=== PATIENT | female | born 1940 | race Hispanic/Latino ===

== ENCOUNTER → 2023-12-07 08:42 | Outpatient (REF) | payer MEDICARE, OTHER, SELFPAY ==
[2023-12-07 13:17] LABS: % Basophils 1.2 % (0-2); % Eosinophils 4.5 % (0-6); % Immature Granulocytes 0.2 % (0-0.5); % Lymphocytes 37.5 % (20.5-51.1); % Monocytes 12.3 % (1.7-9.3); % Neutrophils 44.3 % (42.2-75.2); Absolute Basophils 0.1 10^3/uL (0-0.2); Absolute Eosinophils 0.2 10^3/uL (0-0.7); Absolute Lymphocytes 1.9 10^3/uL (1.2-3.4); Absolute Monocytes 0.6 10^3/uL (0.1-0.6); Absolute Neutrophils 2.3 10^3/uL (1.4-6.5); Hematocrit 38.2 % (37.0-47.0); Hemoglobin 13.1 g/dL (12.0-16.0); Mean Corp Hgb Conc. 34.3 g/dL (33.0-37.0); Mean Corpuscular Hgb 31.6 pg (27.0-31.0); Mean Corpuscular Volume 92.3 fL (81.0-99.0); Mean Platelet Volume 9.8 fL (7.4-10.4); Nucleated Red Blood Cells % 0 %; Platelet Count 287 10^3/uL (130-400); Red Blood Cell Count 4.14 10^6/uL (4.20-5.40); Red Cell Dist. Width 13.2 % (11.5-14.5); White Blood Cell Count 5.1 10^3/uL (4.8-10.8)
[2023-12-07 13:30] LABS: ALT (SGPT) 18 U/L (0-35); AST (SGOT) 26 U/L (14-36); Alkaline Phosphatase 96 U/L (38-126); Blood Urea Nitrogen 16 mg/dl (7-17); Calcium 10.1 mg/dl (8.4-10.2); Carbon Dioxide 26 mmol/L (22-30); Chloride 101 mmol/L (98-107); Glucose 118 mg/dl (70-99); HDL Cholesterol 74 mg/dl; LDL Cholesterol, Calculated 99 mg/dl; Potassium 4.4 mmol/L (3.5-5.1); Sodium 136 mmol/L (135-145); Total Bilirubin 0.6 mg/dl (0.2-1.3); Total Cholesterol 194 mg/dl (50-199); Total Protein 6.7 g/dl (6.3-8.2); Triglyceride 107 mg/dl (10-149); Very Low Density Lipoprotein 21 mg/dl (0-30); eGFR > 60.00
[2023-12-07 13:32] LABS: C-Reactive Protein < 5.00 mg/L (0.0-10.00)
[2023-12-07 13:47] LABS: Microalbumin/creatinine Ratio 17.5 mg/g
[2023-12-07 13:49] LABS: Total Thyroxine 9.07 ug/dl (5.5-11.0)
[2023-12-07 14:03] LABS: TSH 1.92 uIU/ml (0.47-4.68)
[2023-12-07 14:24] LABS: Glycohemoglobin (HgbA1c) 6.2 % (4.0-5.6)
[2023-12-09 22:59] LABS: Total T3 (Sendout) 87 ng/dL (80-200)
== END ==
LOC: HWLAB 08:42
PROVIDERS: ATTENDING PHYSICIAN Nurse Practitioner Adult Health
DX: E11.59 Type 2 diabetes mellitus with other circulatory complications (principal); I10 Essential (primary) hypertension; E78.2 Mixed hyperlipidemia; L40.59 Other psoriatic arthropathy; R74.8 Abnormal levels of other serum enzymes; Z00.00 Encounter for general adult medical examination without abnormal findings; R79.0 Abnormal level of blood mineral
CPT/HCPCS: 36415; 80053; 80061; 82043; 82570; 83036; 84436; 84443; 84480; 85025; 86140

== ENCOUNTER → 2024-01-05 08:59 | Outpatient (REF) | payer MEDICARE, OTHER, SELFPAY ==
[2024-01-05 09:52] LABS: Ionized Calcium 1.25 mMOL/L (1.15-1.33)
[2024-01-05 10:02] LABS: % Basophils 1.1 % (0-2); % Eosinophils 3.9 % (0-6); % Immature Granulocytes 0.4 % (0-0.5); % Lymphocytes 40.1 % (20.5-51.1); % Monocytes 10.7 % (1.7-9.3); % Neutrophils 43.8 % (42.2-75.2); Absolute Basophils 0.1 10^3/uL (0-0.2); Absolute Eosinophils 0.2 10^3/uL (0-0.7); Absolute Lymphocytes 2.3 10^3/uL (1.2-3.4); Absolute Monocytes 0.6 10^3/uL (0.1-0.6); Absolute Neutrophils 2.5 10^3/uL (1.4-6.5); Hematocrit 37.7 % (37.0-47.0); Mean Corp Hgb Conc. 34.5 g/dL (33.0-37.0); Mean Corpuscular Hgb 31.4 pg (27.0-31.0); Mean Corpuscular Volume 91.1 fL (81.0-99.0); Mean Platelet Volume 9.4 fL (7.4-10.4); Nucleated Red Blood Cells % 0 %; Platelet Count 282 10^3/uL (130-400); Red Blood Cell Count 4.14 10^6/uL (4.20-5.40); Red Cell Dist. Width 12.8 % (11.5-14.5); White Blood Cell Count 5.7 10^3/uL (4.8-10.8)
[2024-01-05 10:34] LABS: C-Reactive Protein < 5.00 mg/L (0.0-10.00)
[2024-01-05 10:40] LABS: ALT (SGPT) 24 U/L (0-35); AST (SGOT) 27 U/L (14-36); Albumin 4.4 g/dl (3.5-5.0); Alkaline Phosphatase 107 U/L (38-126); Blood Urea Nitrogen 14 mg/dl (7-17); Calcium 10.1 mg/dl (8.4-10.2); Carbon Dioxide 25 mmol/L (22-30); Chloride 102 mmol/L (98-107); Glucose 123 mg/dl (70-99); Potassium 4.3 mmol/L (3.5-5.1); Sodium 138 mmol/L (135-145); Total Bilirubin 0.5 mg/dl (0.2-1.3); Total Protein 7.1 g/dl (6.3-8.2); eGFR > 60.00
== END ==
LOC: HWLAB 08:59
PROVIDERS: ATTENDING PHYSICIAN Internal Medicine Rheumatology; FAMILY PHYSICIAN Nurse Practitioner Adult Health
DX: E55.9 Vitamin D deficiency, unspecified (principal); K76.0 Fatty (change of) liver, not elsewhere classified; R74.8 Abnormal levels of other serum enzymes; Z22.7 Latent tuberculosis; Z68.29 Body mass index [BMI] 29.0-29.9, adult; Z79.899 Other long term (current) drug therapy
CPT/HCPCS: 36415; 80053; 82330; 85025; 86140

== ENCOUNTER → 2024-01-25 09:56 | Outpatient (REF) | payer MEDICARE, OTHER, SELFPAY | LOC: HWWDC 09:56 | PROVIDERS: ATTENDING PHYSICIAN Nurse Practitioner Adult Health | DX: Z12.31 Encounter for screening mammogram for malignant neoplasm of breast (principal) | CPT/HCPCS: 77063; 77067 ==

== ENCOUNTER → 2024-02-06 10:05 | Outpatient (REF) | payer MEDICARE, OTHER, SELFPAY | LOC: MRI 3T 10:05 | PROVIDERS: ATTENDING PHYSICIAN Specialist; FAMILY PHYSICIAN Nurse Practitioner Adult Health | DX: M54.16 Radiculopathy, lumbar region (principal) | CPT/HCPCS: 72148 ==

== ENCOUNTER → 2024-05-16 10:34 | Outpatient (REF) | payer MEDICARE, OTHER, SELFPAY ==
[2024-05-16 15:46] LABS: % Eosinophils 2.5 % (0-6); % Immature Granulocytes 0.4 % (0-0.5); % Lymphocytes 42.7 % (20.5-51.1); % Monocytes 11.3 % (1.7-9.3); % Neutrophils 42.1 % (42.2-75.2); Absolute Basophils 0.1 10^3/uL (0-0.2); Absolute Eosinophils 0.1 10^3/uL (0-0.7); Absolute Lymphocytes 2.2 10^3/uL (1.2-3.4); Absolute Monocytes 0.6 10^3/uL (0.1-0.6); Absolute Neutrophils 2.2 10^3/uL (1.4-6.5); Hematocrit 40.1 % (37.0-47.0); Hemoglobin 13.7 g/dL (12.0-16.0); Mean Corp Hgb Conc. 34.2 g/dL (33.0-37.0); Mean Corpuscular Hgb 31.7 pg (27.0-31.0); Mean Corpuscular Volume 92.8 fL (81.0-99.0); Mean Platelet Volume 9.8 fL (7.4-10.4); Nucleated Red Blood Cells % 0 %; Platelet Count 276 10^3/uL (130-400); Red Blood Cell Count 4.32 10^6/uL (4.20-5.40); Red Cell Dist. Width 12.8 % (11.5-14.5); White Blood Cell Count 5.2 10^3/uL (4.8-10.8)
[2024-05-16 15:54] LABS: ALT (SGPT) 22 U/L (0-35); AST (SGOT) 31 U/L (14-36); Albumin 4.5 g/dl (3.5-5.0); Alkaline Phosphatase 98 U/L (38-126); Blood Urea Nitrogen 16 mg/dl (7-17); Calcium 10.2 mg/dl (8.4-10.2); Carbon Dioxide 26 mmol/L (22-30); Chloride 101 mmol/L (98-107); Glucose 110 mg/dl (70-99); Potassium 4.4 mmol/L (3.5-5.1); Sodium 135 mmol/L (135-145); Total Bilirubin 0.6 mg/dl (0.2-1.3); Total Protein 7.1 g/dl (6.3-8.2); eGFR > 60.00
[2024-05-16 15:56] LABS: C-Reactive Protein < 5.00 mg/L (0.0-10.00)
[2024-05-16 16:13] LABS: Vitamin D, 25-OH*** 40.8 ng/mL (30-80)
== END ==
LOC: HWLAB 10:34
PROVIDERS: ATTENDING PHYSICIAN Internal Medicine Rheumatology; FAMILY PHYSICIAN Family Medicine
DX: E55.9 Vitamin D deficiency, unspecified (principal); E83.52 Hypercalcemia; K76.0 Fatty (change of) liver, not elsewhere classified; L40.50 Arthropathic psoriasis, unspecified; L40.9 Psoriasis, unspecified; M17.11 Unilateral primary osteoarthritis, right knee; M25.561 Pain in right knee; M67.912 Unspecified disorder of synovium and tendon, left shoulder; M85.80 Other specified disorders of bone density and structure, unspecified site; R74.8 Abnormal levels of other serum enzymes; Z22.7 Latent tuberculosis; Z68.30 Body mass index [BMI] 30.0-30.9, adult; Z79.899 Other long term (current) drug therapy
CPT/HCPCS: 36415; 80053; 82306; 85025; 86140

== ENCOUNTER → 2024-06-29 09:10 | Outpatient (REF) | payer MEDICARE, OTHER, SELFPAY | LOC: HWRCS 09:10 | PROVIDERS: ATTENDING PHYSICIAN Internal Medicine Cardiovascular Disease; FAMILY PHYSICIAN Nurse Practitioner Adult Health | DX: Z01.810 Encounter for preprocedural cardiovascular examination (principal); I10 Essential (primary) hypertension | CPT/HCPCS: 93306 ==

== ENCOUNTER 2024-07-17 09:55 | Inpatient (IN) | payer MEDICARE, OTHER, SELFPAY ==
[2024-06-22 13:45] VITALS: BMI 31.8
[2024-06-22 14:02] LABS: Hematocrit 39.4 % (37.0-47.0); Hemoglobin 13.4 g/dL (12.0-16.0); Mean Corpuscular Hgb 31.5 pg (27.0-31.0); Mean Corpuscular Volume 92.7 fL (81.0-99.0); Mean Platelet Volume 9.7 fL (7.4-10.4); Platelet Count 274 10^3/uL (130-400); Red Blood Cell Count 4.25 10^6/uL (4.20-5.40); Red Cell Dist. Width 12.8 % (11.5-14.5); White Blood Cell Count 6.1 10^3/uL (4.8-10.8)
[2024-06-22 15:10] LABS: ALT (SGPT) 23 U/L (0-35); AST (SGOT) 30 U/L (14-36); Albumin 4.7 g/dl (3.5-5.0); Alkaline Phosphatase 98 U/L (38-126); Blood Urea Nitrogen 16 mg/dl (7-17); Calcium 10.3 mg/dl (8.4-10.2); Carbon Dioxide 25 mmol/L (22-30); Chloride 99 mmol/L (98-107); Estimated Creatinine Clearance 60 ml/min; Glucose 112 mg/dl (70-99); Potassium 4.5 mmol/L (3.5-5.1); Sodium 137 mmol/L (135-145); Total Bilirubin 0.3 mg/dl (0.2-1.3); Total Protein 7.3 g/dl (6.3-8.2); eGFR > 60.00
[2024-06-23 10:09] LABS: Glycohemoglobin (HgbA1c) 5.9 % (4.0-5.6)
--- NOTE | 2024-07-04 10:04 | VNURNOTE ---
Patient is scheduled for an elective left TKA on 07/17/24. She will be an overnight admission.
Spoke to patient on phone. She reports she lives in a single story home. Has 4 step to enter home. She has a walker. Patient's daughter Valerie is emergency contact and will be driving patient home on the day of discharge.
Patient states she believes the plan will be to have outpatient therapy when she is ready. Home health liaison reviewed she will have VN services the day after she gets home. Explained role of SN and PT in home.
Patient selects [facility] for patient�s homecare needs. Referral completed in [facility]
PCP is TOMA Chappell. RX: is Dc
[2024-07-12 11:13] VITALS: BMI 31.8
[2024-07-17] VITALS (10 sets, daily range): BP systolic 111–169; BP diastolic 56–82; PULSE 86; O2SAT 97; BMI 31.8
[2024-07-17 09:53] LABS: Glucose - Point of Care 176 mg/dl (70-99)
[2024-07-17] MEDS: TYLENOL 650 MG PO ×4 (10:17→23:51)
[2024-07-17] MEDS: NORMOSOL-R/PLASMALYTE-A 1000 IV ×2 (10:17→14:26)
[2024-07-17] MEDS: CELEBREX 200 MG PO (10:17)
[2024-07-17 12:01] LABS: Glucose - Point of Care 123 mg/dl (70-99)
--- NOTE | 2024-07-17 12:25 | W.DS.TRANS ---
DC Summary - Behavioral Psychologist
-
Discharge Instructions:
Sleep Apnea Risk Low
Discharge Diagnosis/Procedures R TKA Dr. Lopez 07/17/24
Diet Diabetic, Carb Controlled
Activity With Walker
Driving Restrictions No driving
Bathing Restrictions OK to Shower
Instructions:
Stand-Alone Forms: Total Hip/Knee Replacement D/C
Changes to Home Medications: Yes
Discharge Medications:
DC Medications w/original date entered in [employer]
cholecalciferol (vitamin D3) 50 mcg (2,000 unit) capsule (Vitamin D3) 50 mcg PO DAILY Supplement 12/23/22
multivitamin (Daily Multi-Vitamin tablet) 1 tab PO DAILY Supplement 12/23/22
simethicone 180 mg capsule (Phazyme) 180 mg PO DAILYPRN PRN upset stomach/bloating 12/30/22
amlodipine 10 mg tablet 10 mg PO DAILY 07/12/24
atorvastatin 10 mg tablet (Lipitor) 10 mg PO HS 07/12/24
dexamethasone 4 mg tablet 4 mg PO BID post op 07/12/24
metformin 500 mg tablet,extended release 24 hr 500 mg PO DAILY 07/12/24
mupirocin 2 % topical ointment 1 applic topical BID 07/12/24
omeprazole 20 mg capsule,delayed release 40 mg PO PRN PRN GERD 07/12/24
ondansetron HCl 4 mg tablet 4 mg PO Q6H PRN post op nausea 07/12/24
oxycodone 5 mg tablet 5 - 10 mg PO Q6H PRN post op pain 07/12/24
sulfasalazine 500 mg tablet (Azulfidine) 1,500 mg PO BID 07/12/24
acetaminophen 500 mg tablet (Acetaminophen Extra Strength) 1,000 mg (2 x 500 mg) PO QID #60 tabs 07/17/24
aspirin 325 mg tablet 325 mg PO DAILY Blood clot prevention/tx #0 tabs 07/17/24
celecoxib 100 mg capsule 100 mg PO BID #0 caps 07/17/24
docusate sodium 100 mg capsule (Colace) 100 mg PO BID stool softner #1 cap 07/17/24
lisinopril 40 mg tablet 40 mg PO DAILY #0 tabs 07/17/24
magnesium hydroxide 400 mg/5 mL oral suspension (Milk of Magnesia) 30 ml PO HS PRN Constipation #1 mL 07/17/24
sennosides 8.6 mg tablet (Senokot) 17.2 mg (2 x 8.6 mg) PO BID laxative #2 tabs 07/17/24
Home Medication Changes
ondansetron HCl 4 mg tablet 4 mg PO Q6H PRN post op nausea 07/12/24�
oxycodone 5 mg tablet 5 - 10 mg PO Q6H PRN post op pain 07/12/24�
aspirin 325 mg tablet 325 mg PO DAILY Blood clot prevention/tx #0 tabs 07/17/24�
celecoxib 100 mg capsule 100 mg PO BID #0 caps 07/17/24�
dexamethasone 4 mg tablet 4 mg PO BID post op 07/12/24�
Pending Results: No
[2024-07-17 14:01] LABS: Glucose - Point of Care 114 mg/dl (70-99)
[2024-07-17] MEDS: ROXICODONE 5 MG PO (14:25)
--- NOTE | 2024-07-17 14:50 | PTCARENOTE ---
Patient admitted from [facility] right total knee replacement.The patient reports her pain at a 4 out of 10.Neurovascular assessment is within normal limits and ongoing.Vital signs are stable.The Primaseal dressing has scant drainage .The patient is
in her bed with the call dugan in reach.Physical therapy was on their way in to see the patient.
[2024-07-17] MEDS: GLUCOPHAGE XR EXTENDED RELEASE 500 MG PO (16:38)
[2024-07-17] MEDS: LANTUS 0.04 UNITS SC (16:39)
[2024-07-17] MEDS: NOVOLOG FLEXPEN-MODERATE RESISTANCE SC (16:39)
[2024-07-17] MEDS: ROXICODONE 10 MG PO (17:51)
[2024-07-17] MEDS: ASPIRIN 325 MG PO (17:51)
[2024-07-17] MEDS: AZULFIDINE 1500 MG PO (19:57)
[2024-07-17] MEDS: ANCEF 5 IV (19:57)
[2024-07-17] MEDS: SENOKOT 17.2 MG PO (19:58)
[2024-07-17] MEDS: BACTROBAN 2% OINTMENT 1 APPLIC NASAL (19:58)
[2024-07-17] MEDS: COLACE 100 MG PO (19:58)
[2024-07-17] MEDS: TORADOL 15 MG IV (19:58)
[2024-07-17] MEDS: DECADRON 4 MG PO (19:58)
[2024-07-17 21:52] LABS: Glucose - Point of Care 156 mg/dl (70-99)
[2024-07-17] MEDS: PROTONIX 40 MG PO (22:19)
[2024-07-17] MEDS: NEURONTIN 300 MG PO (22:19)
[2024-07-18] MEDS: ANCEF 5 IV (03:05)
[2024-07-18] MEDS: TYLENOL 650 MG PO ×3 (03:07→11:44)
[2024-07-18 03:38] VITALS: BP 126/57
[2024-07-18 07:20] LABS: Glucose - Point of Care 140 mg/dl (70-99)
[2024-07-18] MEDS: NOVOLOG FLEXPEN-MODERATE RESISTANCE SC (07:26)
[2024-07-18] MEDS: ROXICODONE 10 MG PO (07:55)
[2024-07-18] MEDS: GLUCOPHAGE XR EXTENDED RELEASE 500 MG PO (07:56)
[2024-07-18] MEDS: CELEBREX 200 MG PO (07:56)
[2024-07-18] MEDS: ASPIRIN 325 MG PO (07:56)
[2024-07-18] MEDS: LANTUS 0.04 UNITS SC (07:56)
[2024-07-18] MEDS: COLACE 100 MG PO (07:56)
[2024-07-18] MEDS: DECADRON 4 MG PO (07:56)
[2024-07-18] MEDS: SENOKOT 17.2 MG PO (07:56)
[2024-07-18] MEDS: BACTROBAN 2% OINTMENT 1 APPLIC NASAL (07:57)
[2024-07-18] MEDS: TORADOL 15 MG IV (07:57)
[2024-07-18] MEDS: AZULFIDINE 1500 MG PO (07:57)
[2024-07-18 11:05] VITALS: BP 131/56
--- NOTE | 2024-07-18 11:48 | W.PN.ORTHO ---
Today's Communication / Plan
-
d/c
Assessment
.
Distal Motor Intact: Yes
Dressing:
Clean, dry and intact.
Plan
.
Surgery / Date: Fanny Lopez 07/17/24
DVT Prophylaxis: Aspirin
Activity:
Out of bed.
PT/OT
Discharge Plan: Home w/ Outpatient PT
Subjective
.
.:
Patient resting comfortably.
Vital Signs and Labs
.
Vital Signs and Labs:
Lab Results
06/22/24 13:37
06/22/24 13:37
Temp Pulse Resp BP Pulse Ox
97.4 F 77 17 131/56 97
07/18/24 11:05 07/18/24 11:05 07/18/24 11:05 07/18/24 11:05 07/18/24 11:05
Non-invasive Hgb result: 11.5
Physical Exam
-
HEENT: No pallor, cyanosis, or jaundice. Throat clear.
NECK: Supple. No JVD.
RESPIRATORY: Lungs clear to auscultation.
CVS: S1, S2 normal. RRR.� No murmur, rub or gallop.
ABDOMEN: Soft, non-tender. No distension. BS+/normal.
EXTREMITIES: strength equal, no calf pain with palpation
TECHNICAL PROFESSIONAL: AOx3. No focal deficits. news broadcaster grossly intact
[2024-07-18 11:49] LABS: Glucose - Point of Care 157 mg/dl (70-99)
[2024-07-18 12:01] VITALS: BP 140/85
[2024-07-18] MEDS: NOVOLOG FLEXPEN-MODERATE RESISTANCE 1 UNITS SC (12:27)
[2024-07-18 12:33] VITALS: BP 129/69; PULSE 86
--- NOTE | 2024-07-18 12:45 | CM ---
CM met with tp and dtr
They reside in an apartment- 2+5+1 steps to enter
Pt ambulates with a WW
She has SPC, shower chair, commode, and WW
Dtr assists with her personal care needs
Pt notes financial insecurities for food- she has SNAP benefit
Declined [employer] resources and food pantry lists
PCP- Yin Starkey
Rx- Dc
Plan for home with outpatient therapy
Visit scheduled for Thrs 07/20 at 1000 at [facility]
IMM verbally reviewed- copy provided
Discharge Disposition- home with outpatient therapy- dtr transport
--- NOTE | 2024-07-18 13:00 | PTCARENOTE ---
April dressing on patients R knee changed per [place] [facility] verbal order.
--- NOTE | 2024-07-18 14:25 | PTCARENOTE ---
Escorted patient to daughters car for discharge. R knee aqaucell clean dry and intact.
== END 2024-07-18 14:25 | disposition home or self-care (01) | DRG 470 ==
LOC: 2 SOUTH 09:55
PROVIDERS: ADMITTING PHYSICIAN Specialist; FAMILY PHYSICIAN Nurse Practitioner Adult Health; REFERRING PHYSICIAN Internal Medicine Cardiovascular Disease
PROC: 0SRC0J9 Replacement of Right Knee Joint with Synthetic Substitute, Cemented, Open Approach (ICD-10-PCS; 2024-07-17)
DX: M17.11 Unilateral primary osteoarthritis, right knee (principal); K76.0 Fatty (change of) liver, not elsewhere classified; I10 Essential (primary) hypertension; E11.9 Type 2 diabetes mellitus without complications; E04.1 Nontoxic single thyroid nodule; E66.9 Obesity, unspecified; Z68.30 Body mass index [BMI] 30.0-30.9, adult; E78.5 Hyperlipidemia, unspecified; K21.9 Gastro-esophageal reflux disease without esophagitis; H40.9 Unspecified glaucoma; K58.9 Irritable bowel syndrome, unspecified; M50.30 Other cervical disc degeneration, unspecified cervical region; M85.80 Other specified disorders of bone density and structure, unspecified site; Z96.642 Presence of left artificial hip joint; Z79.82 Long term (current) use of aspirin; Z79.84 Long term (current) use of oral hypoglycemic drugs; Z79.899 Other long term (current) drug therapy; Z87.19 Personal history of other diseases of the digestive system; Z86.19 Personal history of other infectious and parasitic diseases; Z88.5 Allergy status to narcotic agent; Z88.8 Allergy status to other drugs, medicaments and biological substances
CPT/HCPCS: 36415; 73560; 80053; 82962; 83036; 85027; 87070; 97110; 97116; 97162; 97166; 97530; 97535; C1713; C1776

== ENCOUNTER 2024-07-18 18:03 | Emergency (ER) | payer MEDICARE, OTHER, SELFPAY ==
[2024-07-18 18:10] VITALS: BP 179/82
[2024-07-18 18:45] VITALS: BMI 32.1
[2024-07-18 19:33] VITALS: BP 147/62
--- NOTE | 2024-07-18 20:04 | ED.GENMED ---
History of Present Illness
General
Chief Complaint: Post Operative Problem(s)
Time Seen by Provider: 07/18/24 19:39
History of Present Illness
History of Present Illness:
84-year-old female presenting after a total knee replacement. Knee replacement surgery was on 07/17. Procedure performed by Dr. Tomlin. Patient returns to the emergency department because she noted some bleeding at one of her staple sites. Per
orthopedics, no complications from the surgery. Patient has been weightbearing. Denies fever, numbness or tingling to extremity, or additional acute medical complaints.
Past History
Past History
ED Past Medical History: GERD, HTN, Hypercholesterolemia, NIDDM and Other
ED Past Surgical History: Appendectomy, Cholecystectomy, Gynecological (Hysterectomy) and Other
Social History
Tobacco: Former smoker
Alcohol: None
Drug: None
Personal:
Living: alone
Employment: Retired
Family History
Family History: Other (Noncontributory)
Phy Exam
Physical Exam
Physical Exam:
General: Well-appearing, no clinical signs of dehydration, nontoxic and in no acute distress
HEENT: protecting airway
Neck: appears supple
CV: Normal heart rate
Resp: No accessory muscle use, no increased work of breathing
Abd: No distention
Extremities: Generalized swelling to the knee, wrapped with Rob bandages for hemostasis. No erythema or warmth distal to the knee. Sensation and pulses intact
Neuro: alert, no focal neurologic deficit
: deferred
Rectal: deferred
Psych: Normal affect
Skin: Intact
Course
Orders/Labs/Results
Orders:
Orders
07/18/24 19:54
Tranexamic Acid [Cyklokapron] 1,300 mg PO ONCE ONE
Vital Signs
Initial and Last Documented VS:
Initial Vital Signs
Temp Pulse Resp BP Pulse Ox
98.9 F 103 17 179/82 99
07/18/24 18:10 07/18/24 18:10 07/18/24 18:10 07/18/24 18:10 07/18/24 18:10
Last Documented Vital Signs
Temp Pulse Resp BP Pulse Ox
98.9 F 94 18 147/62 97
07/18/24 18:10 07/18/24 19:33 07/18/24 19:33 07/18/24 19:33 07/18/24 19:33
MDM/Problems Addressed
MDM/Problems Addressed:
84-year-old female with history of osteoarthritis status post total knee replacement on 07/17 by orthopedics presenting for concern of bleeding from surgical site. Vital signs on arrival significant for mild hypertension which resolved without
intervention.
On exam, patient well-appearing, no acute distress or discomfort. Orthopedics at bedside on my assessment, appropriately changed bandage and wrapped the knee, tight bandage for hemostasis. Orthopedist, Dr. Tomlin without present concern for
infection. No present neurovascular compromise. Patient has been bearing weight. He is recommending an oral dose of TXA, will administer. From orthopedic standpoint, feel patient is stable for discharge with continued outpatient follow-up.
Advised continued pain control at home with medications provided by orthopedics. Return precautions discussed patient verbalized understanding
*Critical Care Note
Total Time (30-74mins, 75-104mins- exclusive of procedures): Not Applicable
ED Attending Note
-
Portions of this chart may have been created with voice recognition software.� Occasional wrong word or��sound alike� substitutions may have occurred due to the inherent limitations of voice recognition software.
Discharge Plan
Departure
Prescriptions:
No Action
multivitamin [Daily Multi-Vitamin] Tablet
1 tab PO DAILY
cholecalciferol (vitamin D3) [Vitamin D3] 50 mcg (2,000 unit) Capsule
50 mcg PO DAILY
simethicone [Phazyme] 180 mg Capsule
180 mg PO DAILYPRN PRN (Reason: upset stomach/bloating)
sulfasalazine [Azulfidine] 500 mg Tablet
1,500 mg PO BID
atorvastatin [Lipitor] 10 mg Tablet
10 mg PO HS
amlodipine 10 mg Tablet
10 mg PO DAILY
metformin 500 mg Tablet Extended Release 24 Hr
500 mg PO DAILY
omeprazole 20 MG capsule,delayed release(DR/EC)
40 mg PO PRN PRN (Reason: GERD)
mupirocin 2 % Ointment
1 applic TOPICAL BID
Rx Instructions:
started treatment wednesday07/14/24 and completed BID
ondansetron HCl 4 mg Tablet
4 mg PO Q6H PRN (Reason: post op nausea)
Patient Comments:
*
Rx Instructions:
x30 days
dexamethasone 4 mg Tablet
4 mg PO BID
Patient Comments:
*
Rx Instructions:
x3 days
oxycodone 5 mg Tablet
5 - 10 mg PO Q6H PRN (Reason: post op pain)
Patient Comments:
*
sennosides [Senokot] 8.6 mg tablet
17.2 mg PO BID Qty: 2 0RF
magnesium hydroxide [Milk of Magnesia] 400 mg/5 mL suspension
30 ml PO HS PRN (Reason: Constipation) Qty: 1 0RF
docusate sodium [Colace] 100 mg capsule
100 mg PO BID Qty: 1 0RF
aspirin 325 mg Tablet
325 mg PO DAILY Qty: 0 0RF
Patient Comments:
*
Rx Instructions:
x30 days
acetaminophen [Acetaminophen Extra Strength] 500 mg tablet
1,000 mg PO QID Qty: 60 0RF
Rx Instructions:
DO NOT exceed >4000 mg daily.
celecoxib 100 mg Capsule
100 mg PO BID Qty: 0 0RF
Patient Comments:
*
Rx Instructions:
x 30 days
lisinopril 40 mg tablet
40 mg PO DAILY Qty: 0 0RF
Rx Instructions:
HOLD if systolic blood pressure <130 while on Oxycodone.
Referrals:
Yin Storey CRNP [Family Provider] -
Interventions
Interventions:
*Risk Screen - Suicide Last Done: 07/18/24 18:45
*General Assessment Last Done: 07/18/24 18:45
*Neglect/Abuse Screening Last Done: 07/18/24 18:45
ED-Skin Assessment Last Done: 07/18/24 18:45
Discharge Date and Time
Print Language: OCCITAN
[2024-07-18] MEDS: CYKLOKAPRON 1300 MG PO (20:17)
== END 2024-07-18 20:31 | disposition home or self-care (01) ==
LOC: EMR 18:03
PROVIDERS: EMERGENCY PHYSICIAN Student in an Organized Health Care Education/Training Program; FAMILY PHYSICIAN Nurse Practitioner Adult Health
DX: M96.830 Postprocedural hemorrhage of a musculoskeletal structure following a musculoskeletal system procedure (principal); Y83.8 Other surgical procedures as the cause of abnormal reaction of the patient, or of later complication, without mention of misadventure at the time of the procedure; I10 Essential (primary) hypertension; K21.9 Gastro-esophageal reflux disease without esophagitis; E78.00 Pure hypercholesterolemia, unspecified; E11.9 Type 2 diabetes mellitus without complications; Z87.891 Personal history of nicotine dependence; Z96.659 Presence of unspecified artificial knee joint
CPT/HCPCS: 99283

== ENCOUNTER 2024-09-20 15:10 | Emergency (ER) | payer MEDICARE, OTHER, SELFPAY ==
[2024-09-20 15:13] VITALS: BP 173/74
--- NOTE | 2024-09-20 16:41 | ED.MUSCINJ ---
HPI-Injury
General
Chief Complaint: Fall
Source: patient
Exam Limitations: none
Time Seen by Provider: 09/20/24 16:29
Nursing documentation reviewed up to this point in time: agreed with
History of Present Illness-Injury
Is this injury a work related problem?: No
Is pt an associate of [facility]/[place]?: No
Initial Injury comments:
Patient states she slipped and fell getting out of bathtub. Hit back of head on floor. NO LOC. COmplains of pain to right hip and knee, low back. Brought to ED by family for eval.
Past History
Past History
ED Past Medical History: GERD, HTN, Hypercholesterolemia, NIDDM and Other
ED Past Surgical History: Appendectomy, Cholecystectomy, Gynecological (Hysterectomy) and Other
Social History
Tobacco: Former smoker
Alcohol: None
Drug: None
Personal:
Living: alone
Employment: Retired
Family History
Family History: Other (Noncontributory)
Review of Systems
Review of Systems
Allergies reviewed?: Yes
All Other Systems: ROS reviewed and negative except as documented in HPI and ROS
Constitutional: Reports no symptoms
EENT: Reports no symptoms
Respiratory: Reports no symptoms
Cardiac: Reports no symptoms
ABD/GI: Reports no symptoms
Musculoskeletal: Reports joint pain (pain to low back right hip and knee)
Skin: Reports no symptoms
Neurological: Reports headache
Psychiatric: Reports no symptoms
Musculoskeletal Injury Exam
Musculoskeletal Injury Exam
bilateral lower back.:
Pain with Movement?: Moderate
Tender to palpation?: Moderate
Soft tissue swelling?: None
External deformity and angulation?: None
Joint effusion?: None
Contusion?: Moderate
Hematoma-local bleeding into tissue?: None
Strain- Sprain- Tear (Connective tissue injury)?: Moderate
Crepitus with movement?: No
Joint instability?: No
Malalignment/deformity?: No
Range of motion: Limited
Distal skin color and temperature: normal-warm & good color
Capillary Refill: normal
Normal distal neurovascular exam?: Yes
Right Lateral Hip:
Pain with Movement?: Moderate
Tender to palpation?: Moderate
Soft tissue swelling?: None
External deformity and angulation?: None
Joint effusion?: None
Contusion?: Moderate
Hematoma-local bleeding into tissue?: None
Strain- Sprain- Tear (Connective tissue injury)?: None
Crepitus with movement?: No
Joint instability?: No
Malalignment/deformity?: No
Range of motion: Limited
Distal skin color and temperature: normal-warm & good color
Capillary Refill: normal
Normal distal neurovascular exam?: Yes
Right Knee:
Pain with Movement?: Moderate
Tender to palpation?: Moderate
Soft tissue swelling?: None
External deformity and angulation?: None
Joint effusion?: None
Contusion?: Moderate
Hematoma-local bleeding into tissue?: None
Strain- Sprain- Tear (Connective tissue injury)?: Mild
Crepitus with movement?: No
Malalignment/deformity?: No
Range of motion: Full
Distal skin color and temperature: normal-warm & good color
Capillary Refill: normal
Normal distal neurovascular exam?: Yes
Phy Exam
General Physical Exam
General Presentation: well appearing and no apparent distress
General age: appears stated age
General Skin: warm and dry
General Habitus: normal
General Mental: alert
General Hydration: appears well hydrated
Neurological Exam
Neurological Exam: alert, oriented x3, CN II-XII intact, no motor deficits, no sensory deficits and speech normal
Justin Coma Scale
Eye Opening: Spontaneous
Verbal Response: Oriented
Motor Response: Obeys Commands
GCS Total Score: 15
Musculoskeletal Exam
Musculoskeletal Exam: full ROM and neuro vasc intact
Skin Exam
Skin Exam: normal color, warm/dry and no rash
Psychiatric Exam
Psychiatric Exam: normal mood/affect
Injury Course
Orders/Labs/Results
Orders:
Orders
09/20/24 16:38
CT Head W/o Iv Contrast Urgent
Comment:
Reason For Exam: fall
Cervical Spine wo Contrast CT [CT Cervical Spine W/o Iv Contr] Urgent
Comment:
Reason For Exam: trauma
09/20/24 16:39
Hip, Right 2-3 Views [CR Hip - RT w/wo Pel 2-3 Vw*] Urgent
Comment:
Reason For Exam: fall
Include a pelvis x-ray?: Yes
Knee, Right 4 or More Views [CR Knee- Right 4 Or More View*] Urgent
Comment:
Reason For Exam: fall
09/20/24 16:43
Lumbar Spine Complete, 4 View [CR Lumbar Spine Comp Min 4 Vw*] Urgent
Comment:
Reason For Exam: fall, pain
09/20/24 18:54
Acetaminophen [Tylenol] 650 mg PO NOW STA
*Radiology
Radiology exam reviewed: radiology read reviewed
*Pulse Oximetry
Patient hypoxic: no
*Critical Care Note
Total Time (30-74mins, 75-104mins- exclusive of procedures): Not Applicable
ED Attending Note
-
Portions of this chart may have been created with voice recognition software.� Occasional wrong word or��sound alike� substitutions may have occurred due to the inherent limitations of voice recognition software.
Discharge Plan
Departure
Patient Disposition: Home (Routine Discharge)
Date of Disposition: 09/20/24
Time of Disposition: 18:55
Patient with high blood pressure during this ER visit?: No
Condition: Good
Covid-19: Not Applicable
Discharge Problem:
Head injury, Lumbar strain, Contusion of knee, Contusion of hip
Instructions: Low back pain in adults, Head Injury in Adults (DC), Contusion (DC), Preventing falls in adults
Prescriptions:
No Action
multivitamin [Daily Multi-Vitamin] Tablet
1 tab PO DAILY
cholecalciferol (vitamin D3) [Vitamin D3] 50 mcg (2,000 unit) Capsule
50 mcg PO DAILY
simethicone [Phazyme] 180 mg Capsule
180 mg PO DAILYPRN PRN (Reason: upset stomach/bloating)
sulfasalazine [Azulfidine] 500 mg Tablet
1,500 mg PO BID
atorvastatin [Lipitor] 10 mg Tablet
10 mg PO HS
amlodipine 10 mg Tablet
10 mg PO DAILY
metformin 500 mg Tablet Extended Release 24 Hr
500 mg PO DAILY
omeprazole 20 MG capsule,delayed release(DR/EC)
40 mg PO PRN PRN (Reason: GERD)
mupirocin 2 % Ointment
1 applic TOPICAL BID
Rx Instructions:
started treatment wednesday07/14/24 and completed BID
ondansetron HCl 4 mg Tablet
4 mg PO Q6H PRN (Reason: post op nausea)
Patient Comments:
*
Rx Instructions:
x30 days
dexamethasone 4 mg Tablet
4 mg PO BID
Patient Comments:
*
Rx Instructions:
x3 days
oxycodone 5 mg Tablet
5 - 10 mg PO Q6H PRN (Reason: post op pain)
Patient Comments:
*
sennosides [Senokot] 8.6 mg tablet
17.2 mg PO BID Qty: 2 0RF
magnesium hydroxide [Milk of Magnesia] 400 mg/5 mL suspension
30 ml PO HS PRN (Reason: Constipation) Qty: 1 0RF
docusate sodium [Colace] 100 mg capsule
100 mg PO BID Qty: 1 0RF
aspirin 325 mg Tablet
325 mg PO DAILY Qty: 0 0RF
Patient Comments:
*
Rx Instructions:
x30 days
acetaminophen [Acetaminophen Extra Strength] 500 mg tablet
1,000 mg PO QID Qty: 60 0RF
Rx Instructions:
DO NOT exceed >4000 mg daily.
celecoxib 100 mg Capsule
100 mg PO BID Qty: 0 0RF
Patient Comments:
*
Rx Instructions:
x 30 days
lisinopril 40 mg tablet
40 mg PO DAILY Qty: 0 0RF
Rx Instructions:
HOLD if systolic blood pressure <130 while on Oxycodone.
Referrals:
Yin Storey CRNP [Family Provider] - Follow up in 2-3 days
Interventions
Interventions:
*Risk Screen - Suicide Last Done: 09/20/24 15:13
*General Assessment Last Done: 09/20/24 15:13
*Neglect/Abuse Screening Last Done: 09/20/24 16:52
*ED COVID-19 Vaccine History Last Done: 09/20/24 15:13
ED-Musculoskeletal Assessment Last Done: 09/20/24 16:53
ED- Neurological Assessment Last Done: 09/20/24 16:53
ED-Skin Assessment Last Done: 09/20/24 16:53
Discharge Date and Time
Print Language: FAROESE
[2024-09-20 16:51] VITALS: BMI 29.8
[2024-09-20 17:02] VITALS: BP 154/64
[2024-09-20 18:29] VITALS: BP 146/61
[2024-09-20] MEDS: TYLENOL 650 MG PO (19:00)
[2024-09-20 19:13] VITALS: BP 169/64
== END 2024-09-20 19:17 | disposition home or self-care (01) ==
LOC: EMR 15:10
PROVIDERS: EMERGENCY PHYSICIAN Emergency Medicine; FAMILY PHYSICIAN Nurse Practitioner Adult Health
DX: S09.90XA Unspecified injury of head, initial encounter (principal); S39.012A Strain of muscle, fascia and tendon of lower back, initial encounter; S80.01XA Contusion of right knee, initial encounter; S70.01XA Contusion of right hip, initial encounter; W18.2XXA Fall in (into) shower or empty bathtub, initial encounter; E11.9 Type 2 diabetes mellitus without complications; E78.00 Pure hypercholesterolemia, unspecified; I10 Essential (primary) hypertension; K21.9 Gastro-esophageal reflux disease without esophagitis; Z87.891 Personal history of nicotine dependence
CPT/HCPCS: 99284; 70450; 72110; 72125; 73502; 73564

== ENCOUNTER → 2025-03-01 09:56 | Outpatient (REF) | payer MEDICARE, OTHER, SELFPAY | LOC: HWRAD 09:56 | PROVIDERS: ATTENDING PHYSICIAN Internal Medicine Rheumatology; FAMILY PHYSICIAN Family Medicine | DX: M81.0 Age-related osteoporosis without current pathological fracture (principal); Z13.820 Encounter for screening for osteoporosis | CPT/HCPCS: 77080 ==

== ENCOUNTER → 2025-03-06 10:20 | Outpatient (REF) | payer MEDICARE, OTHER, SELFPAY | LOC: HWWDC 10:20 | PROVIDERS: ATTENDING PHYSICIAN Nurse Practitioner Adult Health | DX: Z12.31 Encounter for screening mammogram for malignant neoplasm of breast (principal) | CPT/HCPCS: 77063; 77067 ==

== ENCOUNTER → 2025-06-01 09:38 | Outpatient (REF) | payer MEDICARE, OTHER, SELFPAY ==
[2025-06-01 12:31] LABS: Hematocrit 38.2 % (37.0-47.0); Hemoglobin 12.8 g/dL (12.0-16.0); Mean Corp Hgb Conc. 33.5 g/dL (33.0-37.0); Mean Corpuscular Volume 91.0 fL (81.0-99.0); Nucleated Red Blood Cells % 0 %; Platelet Count 247 10^3/uL (130-400); Red Cell Dist. Width 13.4 % (11.5-14.5)
[2025-06-01 13:20] LABS: Vitamin D, 25-OH*** 40.5 ng/mL (30-80)
[2025-06-01 13:34] LABS: ALT (SGPT) 21 U/L (0-35); AST (SGOT) 26 U/L (14-36); Albumin 4.5 g/dl (3.5-5.0); Alkaline Phosphatase 96 U/L (38-126); Blood Urea Nitrogen 14 mg/dl (7-17); Calcium 10.2 mg/dl (8.4-10.2); Carbon Dioxide 25 mmol/L (22-30); Chloride 103 mmol/L (98-107); Glucose 112 mg/dl (70-99); Glycohemoglobin (HgbA1c) 5.8 % (4.0-5.6); HDL Cholesterol 73 mg/dl; LDL Cholesterol, Calculated 125 mg/dl; Potassium 4.5 mmol/L (3.5-5.1); Sodium 134 mmol/L (135-145); Total Protein 7.6 g/dl (6.3-8.2); Very Low Density Lipoprotein 35 mg/dl (0-30); eGFR > 60.00
[2025-06-01 14:28] LABS: Microalb - Urine Creatinine 81.200 mg/dl
[2025-06-01 14:32] LABS: Microalbumin, Random Urine 1.7 mg/dl (0.6-1.7)
== END ==
LOC: HWLAB 09:38
PROVIDERS: ATTENDING PHYSICIAN Family Medicine; FAMILY PHYSICIAN Nurse Practitioner Adult Health
DX: E11.59 Type 2 diabetes mellitus with other circulatory complications (principal); I10 Essential (primary) hypertension; E78.2 Mixed hyperlipidemia; R74.8 Abnormal levels of other serum enzymes; E55.9 Vitamin D deficiency, unspecified
CPT/HCPCS: 36415; 80053; 80061; 82043; 82306; 82570; 83036; 84443; 85025

== ENCOUNTER → 2025-08-16 08:46 | Outpatient (REF) | payer MEDICARE, OTHER, SELFPAY ==
[2025-08-16 11:27] LABS: Hematocrit 38.7 % (37.0-47.0); Hemoglobin 13.0 g/dL (12.0-16.0); Mean Corp Hgb Conc. 33.6 g/dL (33.0-37.0); Mean Corpuscular Volume 92.8 fL (81.0-99.0); Nucleated Red Blood Cells % 0 %; Platelet Count 268 10^3/uL (130-400); Red Cell Dist. Width 13.2 % (11.5-14.5)
[2025-08-16 11:43] LABS: ALT (SGPT) 19 U/L (0-35); AST (SGOT) 24 U/L (14-36); Albumin 4.4 g/dl (3.5-5.0); Alkaline Phosphatase 95 U/L (38-126); Blood Urea Nitrogen 15 mg/dl (7-17); Calcium 10.0 mg/dl (8.4-10.2); Carbon Dioxide 27 mmol/L (22-30); Chloride 105 mmol/L (98-107); Glucose 111 mg/dl (70-99); Potassium 4.4 mmol/L (3.5-5.1); Sodium 136 mmol/L (135-145); Total Protein 7.4 g/dl (6.3-8.2); eGFR > 60.00
[2025-08-16 11:47] LABS: C-Reactive Protein < 5.00 mg/L (0.0-10.00)
[2025-08-16 12:03] LABS: Vitamin D, 25-OH*** 45.8 ng/mL (30-80)
== END ==
LOC: HWLAB 08:46
PROVIDERS: ATTENDING PHYSICIAN Internal Medicine Rheumatology; FAMILY PHYSICIAN Family Medicine
DX: E55.9 Vitamin D deficiency, unspecified (principal); K76.0 Fatty (change of) liver, not elsewhere classified; L40.50 Arthropathic psoriasis, unspecified; L40.9 Psoriasis, unspecified; M25.561 Pain in right knee; M67.912 Unspecified disorder of synovium and tendon, left shoulder; M81.0 Age-related osteoporosis without current pathological fracture; M85.80 Other specified disorders of bone density and structure, unspecified site; Z13.820 Encounter for screening for osteoporosis; Z22.7 Latent tuberculosis; Z79.899 Other long term (current) drug therapy
CPT/HCPCS: 36415; 80053; 82306; 85025; 86140